=== PATIENT | female | born 1950 | race Caucasian/White ===

== ENCOUNTER 2016-12-05 08:10 | Emergency (ER) | payer MEDICARE, BC ==
[2016-12-05 08:20] VITALS: BP 151/79
[2016-12-05] MEDS ORDERED: Sodium Chloride 0.9% 1,000 ML IV ONE ×2 (08:51→10:04)
[2016-12-05] MEDS ORDERED: Ondansetron 4 MG/2 ML SDV IVPUSH STA (08:52)
[2016-12-05] MEDS ORDERED: Acetaminophen 500 MG Tab PO ONE (08:53)
--- NOTE | 2016-12-05 08:53 | EDM.PDOC ---
ED HPI GENERAL MEDICAL PROBLEM - General Chief Complaint: Gastrointestinal Problem Stated Complaint: DIZZINESS/VOMITTING Time Seen by Provider: 12/05/16 08:40 Source of Information: Reports: Patient History Limitations: Reports: No Limitations - History of Present Illness INITIAL COMMENTS - FREE TEXT/NARRATIVE: This patient is a 66 year old female that presents to the ER. Patient reports that on Sunday she started feeling dizzy. She reports then came along nausea and vomiting. She reports that she has vomited 6x since Sunday. She reports that movement makes her dizziness worse. The patient also reports that she has a global headache, but she reprots this could be due to no caffeine because she has not been able to keep anything down. The patient is alert and oriented. She denies any unilateral weaknesses. The patient is conversing in full and complete sentences without any difficulty. The patient denies nec pain, neck stiffness, congestion, drainage, sore throat, cp, soa, fever, abd pain, bowel changes, rashes. She does report that her urine has been less frequent and more dark. Onset Date: 12/03/16 Duration: Day(s): (2) Location: Reports: Head Quality: Reports: Ache Severity: Moderate Improves with: Reports: Rest Worsens with: Reports: Movement Associated Symptoms: Reports: Headaches, Nausea/Vomiting. Denies: Confusion, Chest Pain, Cough, cough w sputum, Diaphoresis, Fever/Chills, Loss of Appetite, Malaise, Rash, Seizure, Shortness of Breath, Syncope, Weakness Headache Pain Score (Numeric/FACES): 3 - Related Data Allergies Allergy/AdvReac Type Severity Reaction Status Date / Time No Known Allergies Allergy Verified 12/05/16 08:20 Home Meds: Home Meds Bismuth Subsalicylate [Pepto Bismol] 262 mg PO TID PRN 09/15/14 [History] Calcium Carbonate/Vitamin D3 [Calcium 600 + Vit D Tablet] 600 mg PO DAILY [History] Cholecalciferol (Vitamin D3) [Vitamin D] 1,000 unit PO DAILY 09/15/14 [History] Insulin Glarg,Human.Rec.Analog [Lantus] 25 units SUBCUT BEDTIME 09/15/14 [ History] Latanoprost [Xalatan 0.005% Ophth Soln] 1 drop EYERT DAILY 09/15/14 [History] Liraglutide [Victoza] 1.2 mg INJECT DAILY 09/15/14 [History] Multivitamin [Multi Vitamin Daily] 1 tab PO DAILY 09/15/14 [History] Timolol Maleate [Timoptic 0.5% Ocudose] 1 drop EYERT DAILY 09/15/14 [History] Insulin Aspart [NovoLOG] 1 unit SUBCUT ASDIRECTED 12/05/16 [History] atorvaSTATin [Lipitor] 20 mg PO BEDTIME 12/05/16 [History] Past Medical History HEENT History: Reports: Glaucoma, Impaired Vision Cardiovascular History: Reports: High Cholesterol Gastrointestinal History: Reports: Other (See Below) Other Gastrointestinal History: microscopic colitis Musculoskeletal History: Reports: Other (See Below) Endocrine/Metabolic History: Reports: Diabetes, Type II, Osteopenia Hematologic History: Reports: Other (See Below) 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 - Infectious Disease History Infectious Disease History: Reports: Chicken Pox, Measles, Mumps - Past Surgical History HEENT Surgical History: Reports: Tonsillectomy GI Surgical History: Reports: Cholecystectomy, Colonoscopy Female Surgical History: Reports: Tubal Ligation Musculoskeletal Surgical History: Reports: Other (See Below) Other Musculoskeletal Surgeries/Procedures:: back surgery for herniated disc Social & Family History - Tobacco Use Smoking Status *Q: Never Smoker - Caffeine Use Caffeine Use: Reports: Coffee - Recreational Drug Use Recreational Drug Use: No ED ROS GENERAL - Review of Systems Review Of Systems: See Below Constitutional: Reports: No Symptoms HEENT: Reports: No Symptoms Respiratory: Reports: No Symptoms Cardiovascular: Reports: No Symptoms Endocrine: Reports: No Symptoms GI/Abdominal: Reports: Nausea, Vomiting : Reports: Frequency (less frequent) Musculoskeletal: Reports: No Symptoms Skin: Reports: No Symptoms Neurological: Reports: Dizziness, Headache. Denies: Numbness, Seizure, Syncope , Tingling, Tremors, Difficulty Walking, Weakness, Change in Speech Psychiatric: Reports: No Symptoms Hematologic/Lymphatic: Reports: No Symptoms Immunologic: Reports: No Symptoms ED EXAM, DIZZINESS - Physical Exam Exam: See Below Exam Limited By: No Limitations General Appearance: Alert, WD/WN, No Apparent Distress Eye Exam: Bilateral Eye: Normal Inspection, PERRL Ears: Normal External Exam, Normal Canal, Hearing Grossly Normal, Normal TMs Nose: Normal Inspection, Normal Mucosa, No Blood Throat/Mouth: Normal Inspection, Normal Lips, Normal Teeth, Normal Gums, Normal Oropharynx, Normal Voice, No Airway Compromise Head Exam: Atraumatic, Normocephalic Neck: Normal Inspection, Supple, Non-Tender, Full Range of Motion Respiratory/Chest: No Respiratory Distress, Lungs Clear, Normal Breath Sounds, No Accessory Muscle Use Cardiovascular: Normal Peripheral Pulses, Regular Rate, Rhythm, No Edema, No Gallop, No JVD, No Murmur, No Rub GI/Abdominal: Soft, Non-Tender, No Organomegaly, No Distention, No Abnormal Bruit, No Mass, Pelvis Stable Neurological: Alert, Normal Mood/Affect, CN II-XII Intact, Normal Gait, No Motor /Sensory Deficits, Oriented x 3 Back Exam: Normal Inspection, Full Range of Motion. No: CVA Tenderness (L), CVA Tenderness (R) Extremities: Normal Inspection, Normal Range of Motion, Non-Tender, No Pedal Edema, Normal Capillary Refill Psychiatric: Normal Affect, Normal Mood Skin Exam: Warm, Dry, Intact, Normal Color, No Rash EKG INTERPRETATION EKG Date: 12/05/16 Time: 09:18 Rhythm: other (sinus eva) Rate (beats/min): 57 QRS: normal ST-T: normal QT: normal Comparison: NA - no prior EKG Course - Vital Signs Last Recorded V/S: Last Vital Signs Temp 97.3 F 12/05/16 08:17 Pulse 71 12/05/16 08:17 Resp 16 12/05/16 08:17 BP 151/79 H 12/05/16 08:17 Pulse Ox 99 12/05/16 08:17 Orthostatic Blood Pressure [ 158/96 Standing] Orthostatic Blood Pressure [ 147/79 Sitting] Orthostatic Blood Pressure [ 148/76 Supine] - Orders/Labs/Meds Orders: Active Orders 24 hr Category Date Time Status Orthostatic Vital Signs [RC] ASDIRECTED Care 12/05/16 08:50 Active Head wo Cont [CT] Stat Exams 12/05/16 08:50 Taken Sodium Chloride 0.9% [Normal Saline] 1,000 ml Med 12/05/16 10:04 Active IV .BOLUS Medication Orders Sodium Chloride (Normal Saline) 1,000 mls @ 999 mls/hr IV .BOLUS ONE Stop: 12/05/16 11:04 Last Admin: 12/05/16 10:05 Dose: 999 mls/hr Labs: Laboratory Tests 12/05/16 12/05/16 12/05/16 Range/Units 08:51 09:01 09:01 WBC 5.4 (5.0-10.0) 10^3/uL RBC 4.20 (4.00-5.50) 10^6/uL Hgb 12.3 (12.0-16.0) g/dL Hct 37.4 (37.0-47.0) % MCV 89.0 (82.0-94.0) fL MCH 29.3 (27.0-32.0) pg MCHC 32.9 L (33.0-38.0) g/dL RDW Coeff of Sai 14.4 (11.0-15.0) % Plt Count 154 (150-400) 10^3/uL Neut % (Auto) 65.2 (35-85) % Lymph % (Auto) 24.7 (10-55) % [place] % (Auto) 8.5 (0-16) % Eos % (Auto) 0.9 (0-5) % Baso % (Auto) 0.7 (0-3) % Neut # (Auto) 3.51 (1.80-7.00) 10^3/uL Lymph # (Auto) 1.33 (1.00-4.80) 10^3/uL [place] # (Auto) 0.46 (0.00-0.80) 10^3/uL Eos # (Auto) 0.05 (0.00-0.45) 10^3/uL Baso # (Auto) 0.04 10^3/uL Sodium 141 (136-145) mEq/L Potassium 4.2 (3.5-5.0) mEq/L Chloride 104 (98-106) mEq/L Carbon Dioxide 27 (21-32) mmol/L BUN 15 (7-18) mg/dL Creatinine 0.8 (0.6-1.0) mg/dL Est Cr Clr Drug Dosing 60.56 mL/min Estimated GFR (MDRD) > 60 (>=60) mL/min Glucose 176 H D (75-99) mg/dL Calcium 8.4 (8.4-10.1) mg/dL Total Bilirubin 1.2 H (0.0-1.0) mg/dL AST 25 (15-37) U/L ALT 29 (12-78) U/L Alkaline Phosphatase 61 (46-116) U/L Troponin I < 0.017 (0.00-0.06) ng/mL Total Protein 6.9 (6.4-8.2) g/dL Albumin 3.3 L (3.4-5.0) g/dL Urine Color Yellow (YELLOW) Urine Appearance Clear (CLEAR) Urine pH 5.5 (4.5-8.0) Ur Specific [place] 1.020 (1.003-1.020) Urine Protein Trace H (NEGATIVE) mg/dL Urine Glucose (UA) Negative (NEGATIVE) mg/dL Urine Ketones 40 H (NEGATIVE) mg/dL Urine Occult Blood Negative (NEGATIVE) Urine Nitrite Negative (NEGATIVE) Urine Bilirubin Negative (NEGATIVE) Urine Urobilinogen 0.2 (0.2-1.0) EU/dL Ur Leukocyte Esterase Negative (NEGATIVE) Urine RBC Not seen (0-5) /HPF Urine WBC 0-5 (0-5) /HPF Ur Squamous Epith Cells Occasional H (NOT SEEN) /HPF Urine Mucus Occasional H (NOT SEEN) /HPF Meds: Medications Generic Name Dose Route Start Last Admin Trade Name Freq PRN Reason Stop Dose Admin Sodium Chloride 1,000 mls @ 999 mls/hr 12/05/16 10:04 12/05/16 10:05 Normal Saline IV 12/05/16 11:04 999 mls/hr .BOLUS ONE Administration Discontinued Medications Generic Name Dose Route Start Last Admin Trade Name Freq PRN Reason Stop Dose Admin Acetaminophen 1,000 mg 12/05/16 08:53 12/05/16 09:19 Tylenol Extra Strength PO 12/05/16 08:54 1,000 mg ONETIME ONE Administration Sodium Chloride 1,000 mls @ 1,000 mls/hr 12/05/16 08:51 12/05/16 09:02 Normal Saline IV 12/05/16 09:50 1,000 mls/hr .BOLUS ONE Administration Sodium Chloride Confirm 12/05/16 09:57 12/05/16 10:05 Normal Saline Administered 12/05/16 09:58 Not Given Dose 1,000 mls @ as directed .ROUTE .STK-MED ONE Ondansetron HCl 4 mg 12/05/16 08:52 12/05/16 09:04 Zofran IVPUSH 12/05/16 08:53 4 mg NOW STA Administration - Radiology Interpretation Free Text/Narrative:: Head CT: Discussed with radiologist: No acute findings. CT Results Date: 12/05/16 CT Results Time: 10:00 - Re-Assessments/Exams Free Text/Narrative Re-Assessment/Exam: 12/05/16 10:18 Patient reports she does feel improved after fluids. Labs unremarkable, urine does show ketones. Will discharge. Departure - Departure Time of Disposition: 10:21 Disposition: Home, Self-Care 01 Condition: good Clinical Impression: Dehydration, Vertigo - Discharge Information Instructions: Dehydration, Adult, [id number], Vertigo, [id number] Referrals: PCP,None [Primary Care Provider] - Forms: ED Department Discharge Additional Instructions: Followup with your primary care provider this week Return to the ER for worsening of condition or any emergent concerns Increase fluids Rest Zofran 4mg 1 pill every 4 hours as needed for nausea #18 no refill Meclizine 25mg 1 pill twice a day for vertigo #10 no refill - My Orders Last 24 Hours: My Active Orders 12/05/16 08:50 Orthostatic Vital Signs [RC] ASDIRECTED Head wo Cont [CT] Stat 12/05/16 10:04 Sodium Chloride 0.9% [Normal Saline] 1,000 ml IV .BOLUS - Assessment/Plan Last 24 Hours: My Active Orders 12/05/16 08:50 Orthostatic Vital Signs [RC] ASDIRECTED Head wo Cont [CT] Stat 12/05/16 10:04 Sodium Chloride 0.9% [Normal Saline] 1,000 ml IV .BOLUS Plan: PLEASE SEE RN NOTE FOR PFSH.
[2016-12-05 09:18] LABS: CHLORIDE,CL 104 mEq/L (98-106); SODIUM,NA 141 mEq/L (136-145)
[2016-12-05] MEDS ORDERED: Sodium Chloride 0.9% 1,000 ML ONE (09:57)
== END 2016-12-05 11:15 | disposition home or self-care (01) ==
LOC: CC.ED 08:10
DX: E86.0 Dehydration (principal); H54.7 Unspecified visual loss; E78.00 Pure hypercholesterolemia, unspecified; E11.9 Type 2 diabetes mellitus without complications; Z98.890 Other specified postprocedural states; Z90.49 Acquired absence of other specified parts of digestive tract; Z79.4 Long term (current) use of insulin; Z79.899 Other long term (current) drug therapy; Z98.51 Tubal ligation status
CPT/HCPCS: 36415; 70450; 80053; 81001; 84484; 85025; 93005; 96361; 96374; 99284; A9270; J2405; J7030; 93010

== ENCOUNTER 2017-11-08 20:32 | Emergency (ER) | payer MEDICARE, BC ==
--- NOTE | 2017-11-08 20:37 | EDM.PDOC ---
ED HPI GENERAL MEDICAL PROBLEM - General Chief Complaint: Lower Extremity Injury/Pain Stated Complaint: FELL/HURT ANKLE Time Seen by Provider: 11/08/17 20:32 Source of Information: Reports: Patient, Family () History Limitations: Reports: No Limitations - History of Present Illness INITIAL COMMENTS - FREE TEXT/NARRATIVE: Was standing on a ladder about 2 feet above the ground and it broke or she slipped off of it and she came down on her left foot. Laterally it swelled immediately and she hasn't been able to put weight on it since. She did put ice on it. Most of pain is in the 4-5 metatarsal area. Some swelling noted to the area when dressing and ice pack removed. Onset: Today Location: Reports: Lower Extremity, Left Quality: Reports: Throbbing Improves with: Reports: Rest Worsens with: Reports: Other (weight bearing.) Associated Symptoms: Reports: No Other Symptoms Left Ankle Pain Score (Numeric/FACES): 2 - Related Data Allergies Allergy/AdvReac Type Severity Reaction Status Date / Time No Known Allergies Allergy Verified 11/08/17 20:44 Home Meds: Home Meds Bismuth Subsalicylate [Pepto Bismol] 262 mg PO TID PRN 09/15/14 [History] Calcium Carbonate/Vitamin D3 [Calcium 600 + Vit D Tablet] 600 mg PO DAILY [History] Cholecalciferol (Vitamin D3) [Vitamin D] 1,000 unit PO DAILY 09/15/14 [History] Latanoprost [Xalatan 0.005% Ophth Soln] 1 drop EYERT DAILY 09/15/14 [History] Liraglutide [Victoza] 1.2 mg INJECT DAILY 09/15/14 [History] Multivitamin [Multi Vitamin Daily] 1 tab PO DAILY 09/15/14 [History] Timolol Maleate [Timoptic 0.5% Ocudose] 1 drop EYERT DAILY 09/15/14 [History] Insulin Aspart [NovoLOG] 1 unit SUBCUT ASDIRECTED 12/05/16 [History] atorvaSTATin [Lipitor] 20 mg PO BEDTIME 12/05/16 [History] Insulin Detemir [Levemir Flextouch] 23 units INJECT DAILY 11/08/17 [History] Past Medical History HEENT History: Reports: Glaucoma, Impaired Vision Cardiovascular History: Reports: High Cholesterol Gastrointestinal History: Reports: Other (See Below) Other Gastrointestinal History: microscopic colitis Musculoskeletal History: Reports: Other (See Below) Endocrine/Metabolic History: Reports: Diabetes, Type II, Osteopenia Hematologic History: Reports: Other (See Below) 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 - Infectious Disease History Infectious Disease History: Reports: Chicken Pox, Measles, Mumps - Past Surgical History HEENT Surgical History: Reports: Tonsillectomy GI Surgical History: Reports: Cholecystectomy, Colonoscopy Female Surgical History: Reports: Tubal Ligation Musculoskeletal Surgical History: Reports: Other (See Below) Other Musculoskeletal Surgeries/Procedures:: back surgery for herniated disc Social & Family History - Tobacco Use Smoking Status *Q: Never Smoker - Caffeine Use Caffeine Use: Reports: Coffee - Recreational Drug Use Recreational Drug Use: No Review of Systems - Review of Systems Review Of Systems: See Below Constitutional: Reports: No Symptoms Respiratory: Reports: No Symptoms Cardiovascular: Reports: No Symptoms Musculoskeletal: Reports: Foot Pain (left) Skin: Reports: No Symptoms ED EXAM, GENERAL - Physical Exam Exam: See Below Exam Limited By: No Limitations General Appearance: Alert, WD/WN, Mild Distress Extremities: Normal Capillary Refill, Other (pain to the 5th metatarsal and lateral malleolus area with palpation. Some bruising noted to the lateral foot where swelling was initially. Has full ROM noted to the ankle.) Skin Exam: Warm, Intact Course - Vital Signs Last Recorded V/S: Last Vital Signs Temp 97.8 F 11/08/17 20:34 Pulse 75 11/08/17 20:34 Resp 16 11/08/17 20:34 BP 143/76 H 11/08/17 20:34 Pulse Ox 98 11/08/17 20:34 - Orders/Labs/Meds Orders: Active Orders 24 hr Category Date Time Status Foot Comp Min 3V Lt [CR] Stat Exams 11/08/17 20:54 Taken Departure - Departure Time of Disposition: 21:16 Disposition: Home, Self-Care 01 Condition: Good Clinical Impression: Sprain of left foot Qualifiers: Encounter type: initial encounter Qualified Code(s): S93.602A - Unspecified sprain of left foot, initial encounter - Discharge Information Forms: ED Department Discharge Additional Instructions: Tylenol or advil as needed for discomfort Ice for 20 minutes 2-3 times a day Slowly weight bear depending on the pain Will call in the morning with radiology overread on the xray If swelling occurs elevate to help with that. - Problem List & Annotations (1) Sprain of left foot SNOMED Code(s): 96740732 Code(s): S93.602A - UNSPECIFIED SPRAIN OF LEFT FOOT, INITIAL ENCOUNTER Status: Acute - My Orders Last 24 Hours: My Active Orders 11/08/17 20:54 Foot Comp Min 3V Lt [CR] Stat - Assessment/Plan Last 24 Hours: My Active Orders 11/08/17 20:54 Foot Comp Min 3V Lt [CR] Stat
[2017-11-08 20:42] VITALS: BP 143/76
== END 2017-11-08 21:22 | disposition home or self-care (01) ==
LOC: CC.ED 20:32
DX: S93.602A Unspecified sprain of left foot, initial encounter (principal); E11.9 Type 2 diabetes mellitus without complications; Z79.4 Long term (current) use of insulin
CPT/HCPCS: 73630-LT; 99283

== ENCOUNTER 2020-07-11 08:41 | Emergency (ER) | payer MEDICARE, BC ==
[2020-07-11 08:56] VITALS: BP 152/78; PULSE 95
[2020-07-11 09:46] LABS: CHLORIDE,CL 92 mEq/L (98-106); SODIUM,NA 127 mEq/L (136-145)
--- NOTE | 2020-07-11 09:47 | EDM.PDOC ---
ED HPI GENERAL MEDICAL PROBLEM - General Chief Complaint: Respiratory Problem Stated Complaint: COVID Time Seen by Provider: 07/11/20 09:33 Source of Information: Reports: Patient History Limitations: Reports: No Limitations - History of Present Illness INITIAL COMMENTS - FREE TEXT/NARRATIVE: This patient is a 69 year old female that presents to the ER. The patient reports that started 8 days ago with loss of taste. Patient reports then some mild congestion on Sunday when she got tested for COVID. She reports that her COVID test on Sunday was positive. She reports that about 4 days ago she started feeling worse. She reports that for the past 4 days she has had congestion, mild headache global, mild shortness of breath with ambulation to the bathroom, productive cough. 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 She reports it has dissolved and no longer on medications for this. Patient reports that for the past few years she has felt like about 1-2 days of having a fast irregular heart beat in her chest, but this occurs every 6 months. She reports speaking to her PCP about this. No treatment or documented history of A-fib. Onset Date: 06/26/20 Duration: Day(s): (8), Getting Worse Severity: Mild Improves with: Reports: Rest Associated Symptoms: Reports: Cough, cough w sputum, Fever/Chills, Headaches, Malaise, Nausea/Vomiting, Shortness of Breath. Denies: Confusion, Chest Pain, Loss of Appetite, Rash, Seizure, Syncope, Weakness Headache Pain Score (Numeric/FACES): 3 - Related Data Allergies Allergy/AdvReac Type Severity Reaction Status Date / Time No Known Allergies Allergy Verified 07/11/20 08:42 Home Meds: Home Meds Bismuth Subsalicylate [Pepto Bismol] 262 mg PO TID PRN 09/15/14 [History] Calcium Carbonate/Vitamin D3 [Calcium 600 + Vit D Tablet] 600 mg PO DAILY 09/15/14 [History] Cholecalciferol (Vitamin D3) [Vitamin D] 1,000 unit PO DAILY 09/15/14 [History] Liraglutide [Victoza] 1.2 mg INJECT DAILY 09/15/14 [History] Multivitamin [Multi Vitamin Daily] 1 tab PO DAILY 09/15/14 [History] timoloL maleate [Timoptic 0.5% Ocudose] 1 drop EYERT DAILY 09/15/14 [History] Insulin Aspart [NovoLOG] 1 unit SUBCUT ASDIRECTED 12/05/16 [History] atorvaSTATin [Lipitor] 20 mg PO BEDTIME 12/05/16 [History] Insulin Detemir [Levemir Flextouch] 23 units INJECT DAILY 11/08/17 [History] Apixaban [Eliquis] 5 mg PO BID #14 tablet 07/11/20 [Rx] Ondansetron [Zofran ODT] 4 mg PO Q6H PRN #12 tab.dis 07/11/20 [Rx] Past Medical History HEENT History: Reports: Glaucoma, Impaired Vision Cardiovascular History: Reports: High Cholesterol Gastrointestinal History: Reports: Other (See Below) Other Gastrointestinal History: microscopic colitis Musculoskeletal History: Reports: Other (See Below) Endocrine/Metabolic History: Reports: Diabetes, Type II, Osteopenia Hematologic History: Reports: Other (See Below) 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 - Infectious Disease History Infectious Disease History: Reports: Chicken Pox, Measles, Mumps - Past Surgical History HEENT Surgical History: Reports: Tonsillectomy Cardiovascular Surgical History: Reports: None GI Surgical History: Reports: Cholecystectomy, Colonoscopy Female Surgical History: Reports: Tubal Ligation Musculoskeletal Surgical History: Reports: Other (See Below) Other Musculoskeletal Surgeries/Procedures:: back surgery for herniated disc Social & Family History - Family History Family Medical History: No Pertinent Family History - Tobacco Use Tobacco Use Status *Q: Never Tobacco User Second Hand Smoke Exposure: No - Caffeine Use Caffeine Use: Reports: Coffee - Recreational Drug Use Recreational Drug Use: No ED ROS GENERAL - Review of Systems Review Of Systems: See Below Constitutional: Reports: Fever, Chills, Malaise, Weakness, Fatigue HEENT: Reports: Sinus Problem Respiratory: Reports: Shortness of Breath, Cough, Sputum. Denies: Wheezing, Pleuritic Chest Pain, Hemoptysis Cardiovascular: Reports: No Symptoms. Denies: Lightheadedness, Palpitations, Syncope Endocrine: Reports: No Symptoms GI/Abdominal: Reports: Nausea. Denies: Vomiting : Reports: No Symptoms Musculoskeletal: Reports: No Symptoms Skin: Reports: No Symptoms Neurological: Reports: Headache. Denies: Confusion, Dizziness, Numbness, Seizure, Syncope, Tingling, Trouble Speaking, Difficulty Walking, Weakness, Change in Speech, Gait Disturbance Psychiatric: Reports: No Symptoms Hematologic/Lymphatic: Reports: No Symptoms Immunologic: Reports: No Symptoms ED EXAM, GENERAL - Physical Exam Exam: See Below Exam Limited By: No Limitations General Appearance: Alert, WD/WN, No Apparent Distress Eye Exam: Bilateral Eye: Normal Inspection, PERRL Ears: Normal External Exam, Normal Canal, Hearing Grossly Normal, Normal TMs Ear Exam: Bilateral Ear: Auricle Normal, Canal Normal, TM normal Nose: Normal Inspection, Normal Mucosa, No Blood Throat/Mouth: Normal Inspection, Normal Lips, Normal Teeth, Normal Gums, Normal Voice, No Airway Compromise Head: Atraumatic, Normocephalic Neck: Normal Inspection, Supple, Non-Tender, Full Range of Motion Respiratory/Chest: No Respiratory Distress, Lungs Clear, Normal Breath Sounds, No Accessory Muscle Use Cardiovascular: Normal Peripheral Pulses, No Edema, Irregularly Irregular (rate of 84 irregular) Peripheral Pulses: 2+: Radial (L), Radial (R), Posterior Tibial (L), Posterior Tibial (R) GI/Abdominal: Soft, Non-Tender Back Exam: Normal Inspection, Full Range of Motion Extremities: Normal Inspection, Normal Range of Motion, Non-Tender, No Pedal Edema, Normal Capillary Refill Neurological: Alert, Oriented, Normal Gait, No Motor/Sensory Deficits Psychiatric: Normal Affect, Normal Mood Skin Exam: Warm, Dry, Intact, Normal Color, No Rash Lymphatic: No Adenopathy #1 Interpretation EKG Date: 07/11/20 Time: 09:09 Rhythm: A-Fib Rate (Beats/Min): 91 QRS: Normal ST-T: Normal Comparison: NA - No Prior EKG Course - Vital Signs Last Recorded V/S: Last Vital Signs Temp 98.5 F 07/11/20 08:51 Pulse 95 07/11/20 08:51 Resp 20 07/11/20 08:51 BP 152/78 H 07/11/20 08:51 Pulse Ox 95 07/11/20 08:51 - Orders/Labs/Meds Orders: Active Orders 24 hr Category Date Time Status Chest 2V [CR] Stat Exams 07/11/20 08:47 Taken CULTURE BLOOD [BC] Stat Lab 07/11/20 09:09 Received CULTURE BLOOD [BC] Stat Lab 07/11/20 09:09 Received Blood Culture x2 Reflex Set [OM.PC] Stat Oth 12/27/20 08:46 Ordered Labs: Laboratory Tests 07/11/20 07/11/20 07/11/20 Range/Units 09:09 09:09 09:09 WBC 8.1 (5.0-10.0) 10^3/uL RBC 4.75 (4.00-5.50) 10^6/uL Hgb 13.5 (12.0-16.0) g/dL Hct 39.8 (37.0-47.0) % MCV 83.8 (82.0-94.0) fL MCH 28.4 (27.0-32.0) pg MCHC 33.9 (33.0-38.0) g/dL RDW Coeff of Sai 13.7 (11.0-15.0) % Plt Count 175 (150-400) 10^3/uL Neut % (Auto) 82.3 (35-85) % Lymph % (Auto) 11.7 (10-55) % [place] % (Auto) 5.8 (0-16) % Eos % (Auto) 0.1 (0-5) % Baso % (Auto) 0.1 (0-3) % Neut # (Auto) 6.68 (1.80-7.00) 10^3/uL Lymph # (Auto) 0.95 L (1.00-4.80) 10^3/uL [place] # (Auto) 0.47 (0.00-0.80) 10^3/uL Eos # (Auto) 0.01 (0.00-0.45) 10^3/uL Baso # (Auto) 0.01 10^3/uL PT 10.4 (9.7-12.3) SEC INR 1.03 (0.92-1.18) APTT 23.9 (23.2-32.3) SEC D-Dimer, Quantitative (0.00-0.50) Sodium 127 L (136-145) mEq/L Potassium 4.0 (3.5-5.0) mEq/L Chloride 92 L (98-106) mEq/L Carbon Dioxide 25 (21-32) mmol/L BUN 12 (7-18) mg/dL Creatinine 1.0 (0.6-1.0) mg/dL Est Cr Clr Drug Dosing 48.30 mL/min Estimated GFR (MDRD) 55 L (>=60) mL/min Glucose 286 H D (75-99) mg/dL Lactic Acid (0.4-2.0) mmol/L Calcium 8.8 (8.4-10.1) mg/dL Total Bilirubin 0.7 (0.0-1.0) mg/dL AST 29 (15-37) U/L ALT 32 (12-78) U/L Alkaline Phosphatase 79 (46-116) U/L Creatine Kinase 75 (21-215) U/L Troponin I < 0.017 (0.00-0.06) ng/mL NT-Pro-B Natriuret Pep 1274 H (0-1000) pg/mL Total Protein 7.1 (6.4-8.2) g/dL Albumin 2.7 L (3.4-5.0) g/dL 07/11/20 07/11/20 Range/Units 09:09 09:09 WBC (5.0-10.0) 10^3/uL RBC (4.00-5.50) 10^6/uL Hgb (12.0-16.0) g/dL Hct (37.0-47.0) % MCV (82.0-94.0) fL MCH (27.0-32.0) pg MCHC (33.0-38.0) g/dL RDW Coeff of Sai (11.0-15.0) % Plt Count (150-400) 10^3/uL Neut % (Auto) (35-85) % Lymph % (Auto) (10-55) % [place] % (Auto) (0-16) % Eos % (Auto) (0-5) % Baso % (Auto) (0-3) % Neut # (Auto) (1.80-7.00) 10^3/uL Lymph # (Auto) (1.00-4.80) 10^3/uL [place] # (Auto) (0.00-0.80) 10^3/uL Eos # (Auto) (0.00-0.45) 10^3/uL Baso # (Auto) 10^3/uL PT (9.7-12.3) SEC INR (0.92-1.18) APTT (23.2-32.3) SEC D-Dimer, Quantitative 3.31 H (0.00-0.50) Sodium (136-145) mEq/L Potassium (3.5-5.0) mEq/L Chloride (98-106) mEq/L Carbon Dioxide (21-32) mmol/L BUN (7-18) mg/dL Creatinine (0.6-1.0) mg/dL Est Cr Clr Drug Dosing mL/min Estimated GFR (MDRD) (>=60) mL/min Glucose (75-99) mg/dL Lactic Acid 2.0 (0.4-2.0) mmol/L Calcium (8.4-10.1) mg/dL Total Bilirubin (0.0-1.0) mg/dL AST (15-37) U/L ALT (12-78) U/L Alkaline Phosphatase (46-116) U/L Creatine Kinase (21-215) U/L Troponin I (0.00-0.06) ng/mL NT-Pro-B Natriuret Pep (0-1000) pg/mL Total Protein (6.4-8.2) g/dL Albumin (3.4-5.0) g/dL Meds: Medications Discontinued Medications Generic Name Dose Route Start Last Admin Trade Name Freq PRN Reason Stop Dose Admin Apixaban 5 mg 07/11/20 10:24 Eliquis PO 07/11/20 10:25 ONETIME ONE Apixaban 5 mg 07/11/20 10:24 Eliquis PO 07/11/20 10:25 ONETIME ONE Ondansetron HCl 2 packet 07/11/20 10:25 Take Home: Ondansetron Odt 4 Mg, 2 Tab Pack PO 07/11/20 10:26 ONETIME ONE - Radiology Interpretation Free Text/Narrative:: CXR: No focal infiltrates. COVID lungs. - Re-Assessments/Exams Free Text/Narrative Re-Assessment/Exam: 07/11/20 10:17 Patient COVID positive. Followed current hospital and CDC guidelines for treatment. At this time no treatment due to patient not requiring oxygen. I will treatment patient A-fib as far as decreasing chance of a dvt/pe. As patient has hx of DVT and has COVID with A-fib. She is hemodynamically stable, no chest pain. I will also discharge patient home with Zofran for her nausea. Departure - Departure Time of Disposition: 10:19 Disposition: Home, Self-Care 01 Condition: Fair Clinical Impression: COVID-19 Atrial fibrillation Qualifiers: Atrial fibrillation type: unspecified Qualified Code(s): I48.91 - Unspecified a trial fibrillation - Discharge Information *PRESCRIPTION DRUG MONITORING PROGRAM REVIEWED*: Not Applicable *COPY OF PRESCRIPTION DRUG MONITORING REPORT IN PATIENT JULIAS: Not Applicable Prescriptions: Apixaban [Eliquis] 5 mg PO BID #14 tablet Ondansetron [Zofran ODT] 4 mg PO Q6H PRN #12 tab.dis PRN Reason: Nausea/Vomiting Instructions: COVID-19 Frequently Asked Questions, COVID-19: How to Protect Yourself and Others - CDC, Atrial Fibrillation, [id number], Preventing Atrial Fibrillation-Related Stroke, Prevent the Spread of COVID-19 if You Are Sick - [facility] Referrals: Neela Love PA-C [Primary Care Provider] - Forms: ED Department Discharge Additional Instructions: Followup with your primary care provider this week Return to the ER for worsening of condition or any emergent concerns Eliquis 5mg 1 pill twice a day #14 no refill, #2 take home Please be aware, like we discussed, Eliquis can cause bleeding such as bleeding on brain, bowels, or after injury. Increase fluids Tylenol and/or Motrin for fever Incentive Spirometer every 2 hours while awake to help prevent pneumonia Zofran 4mg 1 pill under the tongue as needed for nausea and vomiting every 6 hours #4 take home Sepsis Event Note (ED) - Evaluation Sepsis Screening Result: Possible Sepsis Risk - Focused Exam Vital Signs: Vital Signs Temp Pulse Resp BP Pulse Ox 07/11/20 08:51 98.5 F 95 20 152/78 H 95 - My Orders Last 24 Hours: My Active Orders 07/11/20 08:46 Blood Culture x2 Reflex Set [OM.PC] Stat 07/11/20 08:47 Chest 2V [CR] Stat 07/11/20 09:09 CULTURE BLOOD [BC] Stat CULTURE BLOOD [BC] Stat - Assessment/Plan Last 24 Hours: My Active Orders 07/11/20 08:46 Blood Culture x2 Reflex Set [OM.PC] Stat 07/11/20 08:47 Chest 2V [CR] Stat 07/11/20 09:09 CULTURE BLOOD [BC] Stat CULTURE BLOOD [BC] Stat Plan: PLEASE SEE RN NOTE FOR PFSH
[2020-07-11 09:53] LABS: PTT,PARTIAL THROMBOPLSTIN TIME 23.9 SEC (23.2-32.3)
[2020-07-11] MEDS ORDERED: Apixaban 5 MG Tab PO ONE ×2 (10:24)
[2020-07-11] MEDS ORDERED: Ondansetron 4 MG Tab.DIS ONE ×2 (10:25→19:15)
[2020-07-11] MEDS ORDERED: Take Home: Ondansetron 4 MG Tab.DIS, 2 Tab Pack PO ONE (10:25)
[2020-07-11] MEDS ORDERED: 50% Dextrose in Water 50 ML Syringe ONE (18:44)
== END 2020-07-11 10:35 | disposition home or self-care (01) ==
LOC: CC.ED 08:41
DX: U07.1 COVID-19 (principal); I48.91 Unspecified atrial fibrillation; E78.00 Pure hypercholesterolemia, unspecified; E11.9 Type 2 diabetes mellitus without complications; Z79.4 Long term (current) use of insulin; Z79.01 Long term (current) use of anticoagulants; Z79.899 Other long term (current) drug therapy
CPT/HCPCS: 36415; 71046; 80053; 82550; 83605; 83880; 84484; 85025; 85379; 85610; 85730; 87040; 93005; 93010; 99284; 99285-25; A9270-GY

== ENCOUNTER → 2022-11-10 | Day surgery (SDC) | payer MEDICARE, BC ==
[~2022-11-10] MED LIST: Ketamine 200 MG/20 ML MDV ONE; Lactated Ringers 1,000 ML IV SCH; Phenylephrine 1% 10 MG/ML SDV ONE; Propofol 200 MG/20 ML SDV ONE; fentaNYL 50 MCG/ML SDV ONE
[2022-11-10 09:28] VITALS: BP 114/56; PULSE 56
== END ==
LOC: CC.SDS 07:23
PROVIDERS: ATTEND Family Medicine
DX: Z12.11 Encounter for screening for malignant neoplasm of colon (principal); K57.30 Diverticulosis of large intestine without perforation or abscess without bleeding; N81.10 Cystocele, unspecified; I48.91 Unspecified atrial fibrillation; K21.9 Gastro-esophageal reflux disease without esophagitis; E78.5 Hyperlipidemia, unspecified; M85.80 Other specified disorders of bone density and structure, unspecified site; E11.9 Type 2 diabetes mellitus without complications; Z79.899 Other long term (current) drug therapy; Z79.01 Long term (current) use of anticoagulants; Z79.4 Long term (current) use of insulin; Z90.49 Acquired absence of other specified parts of digestive tract
CPT/HCPCS: J2370; J2704; J3010; J3490; J7120